=== PATIENT | female | born 1980 | race Two or more races ===

== ENCOUNTER 2020-01-20 19:01 | Inpatient (IN) | payer MEDICAID, OTHER ==
[~2020-01-20] VITALS: Ht 154.9 cm; Wt 46.1 kg
[~2020-01-20 19:01] MED LIST: CIPR-245 PO; FLUO-191 PO; FOLI1TAB15 PO; LEVO25TA9 PO; MULT-248 PO; NALT50TA PO; THIA100T13 PO
[2020-01-20 22:06] LABS: AMPHET/METH SCREEN,URINE POSITIVE (NEGATIVE); BARBITURATE SCREEN, URINE NEGATIVE (NEGATIVE); BENZODIAZEPINES SCREEN,URINE NEGATIVE (NEGATIVE); CANNABINOID SCREEN,URINE POSITIVE (NEGATIVE); COCAINE SCREEN,URINE NEGATIVE (NEGATIVE); METHADONE SCREEN, URINE NEGATIVE (NEGATIVE); OPIATE SCREEN,URINE NEGATIVE (NEGATIVE); PHENCYCLIDINE SCREEN,URINE NEGATIVE (NEGATIVE)
[2020-01-20 22:21] LABS: BASOPHILS % (AUTO) 1.1 % (0.0-2.0); EOSINOPHILS % (AUTO) 1.1 % (1.0-6.0); HEMATOCRIT 42.1 % (36-46); HEMOGLOBIN 14.3 g/dL (12.0-16.0); LYMPHOCYTES # (AUTO) 1.9 K/uL (1.0-4.8); LYMPHOCYTES % (AUTO) 28.4 % (22.0-44.0); MEAN CORPUSCULAR HEMOGLOBIN 32.1 pg (26.0-34.0); MEAN CORPUSCULAR VOLUME 94 fL (80-100); MONOCYTES # (AUTO) 0.4 K/uL (0.1-1.0); MONOCYTES % (AUTO) 6.6 % (2.0-9.0); NEUTROPHILS # (AUTO) 4.1 K/uL (1.8-7.7); NEUTROPHILS % (AUTO) 62.8 % (40.0-70.0); PLATELET COUNT (AUTO) 255 K/uL (150-450); RED BLOOD CELL COUNT(AUTO) 4.47 MIL/uL (4.00-5.20); RED CELL DISTRIBUTION WIDTH 14.4 % (11.5-14.5)
[2020-01-20 22:46] LABS: ALANINE AMINOTRANSFERASE 17 U/L (12-78); ALBUMIN 3.8 g/dL (3.4-5.0); ALKALINE PHOSPHATASE 62 U/L (46-116); ANION GAP -4 mmol/L (8-16); ASPARTATE AMINOTRANSFERASE 20 U/L (15-37); BILIRUBIN,TOTAL 0.7 mg/dL (0.1-1.0); CALCIUM, TOTAL 9.1 mg/dL (8.8-10.5); CARBON DIOXIDE 25 mmol/L (22-29); CHLORIDE 101 mmol/L (98-107); CREATININE 0.74 mg/dL (0.60-1.30); GLOMERULAR FILTR. RATE CALC > 60 mL/min (>60); GLUCOSE,RANDOM 77 mg/dL (70-110); HCG,QUANTITATIVE 1 mIU/mL (0-6); POTASSIUM 3.2 mmol/L (3.5-5.1); TOTAL PROTEIN, SERUM 7.9 g/dL (6.4-8.2); UREA NITROGEN, BLOOD 12 mg/dL (7-18)
[2020-01-20 22:52] LABS: SODIUM SERUM 122 mmol/L (136-145)
[2020-01-20] MEDS ORDERED: POTASSIUM CHLORIDE 10% 40 MEQ/30 ML LIQUID UDCUP PO ONE (23:15)
[2020-01-20] MEDS ORDERED: SODIUM CHLORIDE 1 GM TABLET PO ONE (23:15)
[2020-01-20 23:40] LABS: ANION GAP 7 mmol/L (8-16); CALCIUM, TOTAL 8.8 mg/dL (8.8-10.5); CARBON DIOXIDE 27 mmol/L (22-29); CHLORIDE 103 mmol/L (98-107); CREATININE 0.75 mg/dL (0.60-1.30); GLOMERULAR FILTR. RATE CALC > 60 mL/min (>60); GLUCOSE,RANDOM 79 mg/dL (70-110); POTASSIUM 3.5 mmol/L (3.5-5.1); SODIUM SERUM 137 mmol/L (136-145); UREA NITROGEN, BLOOD 14 mg/dL (7-18)
[2020-01-21] MEDS ORDERED: LORazepam 2 MG TABLET PO PRN (01:00)
[2020-01-21] MEDS ORDERED: QUEtiapine FUMARATE 100 MG TABLET PO PRN (01:00)
[2020-01-21 01:36] LABS: COVID AG,FIA SOURCE NASOPHARYNGEAL
[2020-01-21 02:40] VITALS: BP 102/70
[2020-01-21] MEDS: ZOLPIDEM TARTRATE 10 MG TABLET PO PRN ×2 (03:03→22:00)
[2020-01-21] MEDS ORDERED: NICOTINE 14 MG/24 HOUR PATCH TD PRN (08:00)
[2020-01-21] MEDS ORDERED: DOCUSATE SODIUM 100 MG CAPSULE PO PRN (08:00)
[2020-01-21] MEDS ORDERED: ACETAMINOPHEN 325 MG TABLET PO PRN (08:00)
[2020-01-21] MEDS ORDERED: PETROLATUM,WHITE 28 GM JELLY TP PRN (08:00)
[2020-01-21] MEDS ORDERED: ALBUTEROL SULFATE HFA 90 MCG/PUFF 8 GM INHALER IH PRN (08:00)
[2020-01-21] MEDS ORDERED: IBUPROFEN 400 MG TABLET PO PRN (08:00)
[2020-01-21] MEDS ORDERED: MAGNESIUM HYDROXIDE SUSPENSION 30 ML UDCUP PO PRN (08:00)
[2020-01-21] MEDS ORDERED: MAG HYDROX/AL HYDROX/SIMETH ES 30 ML SUSPENSION UDCUP PO PRN (08:00)
[2020-01-21] MEDS ORDERED: LOPERAMIDE HCL 2 MG CAPSULE PO PRN (08:00)
[2020-01-21] MEDS ORDERED: ONDANSETRON HCL 4 MG TABLET PO PRN (08:00)
[2020-01-21] MEDS ORDERED: CloNIDine HCL 0.1 MG TABLET PO PRN (08:00)
[2020-01-21] MEDS ORDERED: GuaiFENesin/D-METHORPHAN [SUGAR-FREE] 200-20MG/10 ML SYRUP UDCUP PO PRN (08:00)
[2020-01-21 08:58] VITALS: BP 111/66
[2020-01-21] MEDS: BuPROPion HCL XL 150 MG ER TABLET PO SCH (13:26)
[2020-01-21 16:18] VITALS: BP 99/58
[2020-01-22 06:02] VITALS: BP 106/61
[2020-01-22 07:19] LABS: CHOL/HDL RATIO 2.3 (3.9-5.7)
[2020-01-22 09:38] VITALS: BP 101/65
[2020-01-22] MEDS: BuPROPion HCL XL 150 MG ER TABLET PO SCH (10:54)
[2020-01-22 16:14] VITALS: BP 95/61
[2020-01-22] MEDS: ZOLPIDEM TARTRATE 10 MG TABLET PO PRN (20:12)
[2020-01-23 08:19] VITALS: BP 94/45
[2020-01-23] MEDS: BuPROPion HCL XL 150 MG ER TABLET PO SCH (08:58)
[2020-01-23] MEDS ORDERED: BUPR-93 PO (11:32)
== END 2020-01-23 15:35 | disposition home or self-care (01) | DRG 751 ==
LOC: EMS 19:18 → 3EI 01-21 00:55
DX: F33.2 Major depressive disorder, recurrent severe without psychotic features (principal); E03.9 Hypothyroidism, unspecified; E87.1 Hypo-osmolality and hyponatremia; E87.6 Hypokalemia; Z20.828 Contact with and (suspected) exposure to other viral communicable diseases; R45.851 Suicidal ideations; Z59.0 Homelessness; Z79.899 Other long term (current) drug therapy; Z81.8 Family history of other mental and behavioral disorders
CPT/HCPCS: 87426; G0480

== ENCOUNTER 2021-02-12 14:27 | Emergency (ER) | payer MEDICAID, OTHER ==
[~2021-02-12] VITALS: Ht 154.9 cm; Wt 45.5 kg
[~2021-02-12 14:27] MED LIST changes: +BUPR-93 PO; -CIPR-245 PO; +CIPR500T10 PO
[2021-02-12 20:05] LABS: BASOPHILS % (AUTO) 0.5 % (0.0-2.0); EOSINOPHILS % (AUTO) 1.2 % (1.0-6.0); HEMOGLOBIN 14.5 g/dL (12.0-16.0); LYMPHOCYTES # (AUTO) 2.1 K/uL (1.0-4.8); LYMPHOCYTES % (AUTO) 38.3 % (22.0-44.0); MEAN CORPUSCULAR HEMOGLOBIN 31.5 pg (26.0-34.0); MEAN CORPUSCULAR HGB CONC 34.6 G/dL (31.0-37.0); MEAN CORPUSCULAR VOLUME 91 fL (80-100); MONOCYTES # (AUTO) 0.4 K/uL (0.1-1.0); MONOCYTES % (AUTO) 8.1 % (2.0-9.0); NEUTROPHILS # (AUTO) 2.8 K/uL (1.8-7.7); NEUTROPHILS % (AUTO) 51.9 % (40.0-70.0); PLATELET COUNT (AUTO) 283 K/uL (150-450); RED BLOOD CELL COUNT(AUTO) 4.61 MIL/uL (4.00-5.20); RED CELL DISTRIBUTION WIDTH 13.6 % (11.5-14.5)
[2021-02-12 20:16] LABS: ANION GAP 6 mmol/L (8-16); CALCIUM, TOTAL 9.3 mg/dL (8.8-10.5); CARBON DIOXIDE 33 mmol/L (22-29); CHLORIDE 103 mmol/L (98-107); CREATININE 0.72 mg/dL (0.60-1.30); GLOMERULAR FILTR. RATE CALC > 60 mL/min (>60); GLUCOSE,RANDOM 104 mg/dL (70-110); POTASSIUM 3.6 mmol/L (3.5-5.1); SODIUM SERUM 142 mmol/L (136-145); UREA NITROGEN, BLOOD 13 mg/dL (7-18)
[2021-02-12 20:22] LABS: ALANINE AMINOTRANSFERASE 14 U/L (12-78); ALKALINE PHOSPHATASE 69 U/L (46-116); ASPARTATE AMINOTRANSFERASE 19 U/L (15-37); BILIRUBIN,TOTAL 0.6 mg/dL (0.1-1.0); TOTAL PROTEIN, SERUM 8.4 g/dL (6.4-8.2)
[2021-02-12 20:35] LABS: COVID AG,FIA SOURCE NASOPHARYNGEAL
[2021-02-12 20:44] LABS: AMPHET/METH SCREEN,URINE POSITIVE (NEGATIVE); BARBITURATE SCREEN, URINE NEGATIVE (NEGATIVE); BENZODIAZEPINES SCREEN,URINE NEGATIVE (NEGATIVE); CANNABINOID SCREEN,URINE POSITIVE (NEGATIVE); COCAINE SCREEN,URINE NEGATIVE (NEGATIVE); METHADONE SCREEN, URINE NEGATIVE (NEGATIVE); OPIATE SCREEN,URINE NEGATIVE (NEGATIVE)
[2021-02-12 20:45] LABS: PHENCYCLIDINE SCREEN,URINE NEGATIVE (NEGATIVE)
[2021-02-12 22:45] VITALS: BP 134/68
== END 2021-02-12 22:46 | disposition home or self-care (01) ==
LOC: EMS 14:29
DX: F32.9 Major depressive disorder, single episode, unspecified (principal); R45.851 Suicidal ideations; F15.10 Other stimulant abuse, uncomplicated; E03.9 Hypothyroidism, unspecified; F12.90 Cannabis use, unspecified, uncomplicated; F17.210 Nicotine dependence, cigarettes, uncomplicated; Z88.8 Allergy status to other drugs, medicaments and biological substances; Z79.899 Other long term (current) drug therapy
CPT/HCPCS: 36415; 80053; 80307; 84703; 85025; 87426; 99285; G0480

== ENCOUNTER 2021-07-22 19:00 | Inpatient (IN) | payer MEDICAID, OTHER ==
[~2021-07-22] VITALS: Ht 154.9 cm; Wt 42.6 kg
[~2021-07-22 19:00] MED LIST changes: +BUPR-50 PO; -BUPR-93 PO; +FLUO-177 PO; -FLUO-191 PO
[2021-07-22 19:57] LABS: BASOPHILS % (AUTO) 1.2 % (0.0-2.0); EOSINOPHILS % (AUTO) 2.1 % (1.0-6.0); HEMATOCRIT 40.1 % (36-46); HEMOGLOBIN 13.8 g/dL (12.0-16.0); LYMPHOCYTES # (AUTO) 2.6 K/uL (1.0-4.8); LYMPHOCYTES % (AUTO) 34.5 % (22.0-44.0); MEAN CORPUSCULAR HEMOGLOBIN 31.6 pg (26.0-34.0); MEAN CORPUSCULAR HGB CONC 34.5 G/dL (31.0-37.0); MEAN CORPUSCULAR VOLUME 92 fL (80-100); MONOCYTES # (AUTO) 0.6 K/uL (0.1-1.0); MONOCYTES % (AUTO) 7.7 % (2.0-9.0); NEUTROPHILS # (AUTO) 4.1 K/uL (1.8-7.7); NEUTROPHILS % (AUTO) 54.5 % (40.0-70.0); PLATELET COUNT (AUTO) 360 K/uL (150-450); RED BLOOD CELL COUNT(AUTO) 4.38 MIL/uL (4.00-5.20); RED CELL DISTRIBUTION WIDTH 13.8 % (11.5-14.5)
[2021-07-22 20:08] LABS: ANION GAP 8 mmol/L (8-16); CALCIUM, TOTAL 9.3 mg/dL (8.8-10.5); CARBON DIOXIDE 29 mmol/L (22-29); CHLORIDE 103 mmol/L (98-107); CREATININE 0.76 mg/dL (0.60-1.30); GLUCOSE,RANDOM 90 mg/dL (70-110); POTASSIUM 3.8 mmol/L (3.5-5.1); SODIUM SERUM 140 mmol/L (136-145); UREA NITROGEN, BLOOD 14 mg/dL (7-18)
[2021-07-22 20:10] LABS: GLOMERULAR FILTR. RATE CALC > 60 mL/min (>60)
[2021-07-22 20:23] LABS: ALANINE AMINOTRANSFERASE 64 U/L (12-78); ALKALINE PHOSPHATASE 93 U/L (46-116); ASPARTATE AMINOTRANSFERASE 24 U/L (15-37); BILIRUBIN,TOTAL 0.3 mg/dL (0.1-1.0); HCG,QUANTITATIVE < 1 mIU/mL (0-6); THYROID STIMULATING HORMONE 2.86 uIU/mL (0.36-3.74); TOTAL PROTEIN, SERUM 7.6 g/dL (6.4-8.2)
[2021-07-22 20:26] LABS: COVID AG,FIA SOURCE NASOPHARYNGEAL
[2021-07-22] MEDS ORDERED: LORazepam 1 MG TABLET PO ONE (21:15)
[2021-07-22] MEDS ORDERED: ZOLPIDEM TARTRATE 10 MG TABLET PO PRN (21:30)
[2021-07-22] MEDS ORDERED: SODIUM BICARBONATE [ADULT] 8.4% 50 MEQ/50 ML SYRINGE IVP ONE (23:15)
[2021-07-23 02:40] VITALS: BP 127/55
[2021-07-23 08:26] VITALS: BP 130/65
[2021-07-23] MEDS: LORazepam 2 MG TABLET PO PRN (11:03)
[2021-07-23 16:13] VITALS: BP 106/71
[2021-07-24 07:11] VITALS: BP 111/75
[2021-07-24 08:30] VITALS: BP 116/76
[2021-07-24] MEDS: FLUoxetine HCL 20 MG CAPSULE PO SCH (08:34)
[2021-07-24] MEDS: NALTREXONE HCL 50 MG TABLET PO SCH (08:34)
[2021-07-24] MEDS: BuPROPion HCL XL 150 MG ER TABLET PO SCH (08:34)
[2021-07-24] MEDS: LORazepam 2 MG TABLET PO PRN (16:05)
[2021-07-24 16:20] VITALS: BP 124/85
[2021-07-25 04:25] VITALS: BP 108/55
[2021-07-25 08:27] LABS: HEMOGLOBIN A1C 5.2 % (3.8-5.6)
[2021-07-25 08:28] LABS: CHOL/HDL RATIO 2.4 (3.9-5.7); FREE T4 (FREE THYROXINE) 0.58 ng/dL (0.76-1.46)
[2021-07-25 08:36] VITALS: BP 120/75
[2021-07-25] MEDS: NALTREXONE HCL 50 MG TABLET PO SCH (08:39)
[2021-07-25] MEDS: BuPROPion HCL XL 150 MG ER TABLET PO SCH (08:39)
[2021-07-25] MEDS: LORazepam 2 MG TABLET PO PRN (08:39)
[2021-07-25] MEDS: FLUoxetine HCL 20 MG CAPSULE PO SCH (08:39)
[2021-07-25 16:25] VITALS: BP 106/69
[2021-07-26 01:33] VITALS: BP 110/66
[2021-07-26] MEDS: LORazepam 2 MG TABLET PO PRN ×3 (06:51→18:42)
[2021-07-26 08:14] VITALS: BP 110/69
[2021-07-26] MEDS: NALTREXONE HCL 50 MG TABLET PO SCH (08:52)
[2021-07-26] MEDS: FLUoxetine HCL 20 MG CAPSULE PO SCH (08:52)
[2021-07-26] MEDS: BuPROPion HCL XL 150 MG ER TABLET PO SCH (08:52)
[2021-07-26 16:38] VITALS: BP 102/64
[2021-07-27 00:45] VITALS: BP 104/62
[2021-07-27] MEDS ORDERED: LOPERAMIDE HCL 2 MG CAPSULE PO PRN (03:45)
[2021-07-27] MEDS ORDERED: HydrOXYzine PAMOATE 50 MG CAPSULE PO PRN (03:45)
[2021-07-27] MEDS ORDERED: ACETAMINOPHEN 325 MG TABLET PO PRN (03:45)
[2021-07-27] MEDS ORDERED: TUBERCULIN, PURIFIED PROTEIN DERIVATIVE 5 TU/0.1 ML SYRINGE ID ONE (03:45)
[2021-07-27] MEDS ORDERED: MAGNESIUM HYDROXIDE SUSPENSION 30 ML UDCUP PO PRN (03:45)
[2021-07-27] MEDS ORDERED: PROMETHAZINE HCL 25 MG TABLET PO PRN (03:45)
[2021-07-27] MEDS ORDERED: MAG HYDROX/AL HYDROX/SIMETH ES 30 ML SUSPENSION UDCUP PO PRN (03:45)
[2021-07-27] MEDS ORDERED: GuaiFENesin/D-METHORPHAN [SUGAR-FREE] 200-20MG/10 ML SYRUP UDCUP PO PRN (03:45)
[2021-07-27 08:22] VITALS: BP 114/66
[2021-07-27] MEDS: LORazepam 2 MG TABLET PO PRN ×3 (08:48→19:23)
[2021-07-27] MEDS: THIAMINE 100 MG TABLET PO SCH ×2 (08:48→16:08)
[2021-07-27] MEDS: MULTIVITAMINS WITH MINERALS, THERAPEUTIC TABLET PO SCH (08:48)
[2021-07-27] MEDS: NALTREXONE HCL 50 MG TABLET PO SCH (08:49)
[2021-07-27] MEDS: OMEGA-3/DHA/EPA/FISH OIL 1,000 MG CAPSULE PO SCH (08:49)
[2021-07-27] MEDS: FOLIC ACID 1 MG TABLET PO SCH (08:49)
[2021-07-27] MEDS: BuPROPion HCL XL 150 MG ER TABLET PO SCH (08:49)
[2021-07-27] MEDS: FLUoxetine HCL 20 MG CAPSULE PO SCH (08:52)
[2021-07-27 16:46] VITALS: BP 105/74
[2021-07-27] MEDS: MELATONIN 5 MG TABLET PO SCH (20:46)
[2021-07-27 20:47] VITALS: BP 138/93
[2021-07-27] MEDS: TraMADol HCL 50 MG TABLET PO PRN (20:47)
[2021-07-28 06:26] VITALS: BP 109/76
[2021-07-28] MEDS: MULTIVITAMINS WITH MINERALS, THERAPEUTIC TABLET PO SCH (08:23)
[2021-07-28] MEDS: BuPROPion HCL XL 150 MG ER TABLET PO SCH (08:23)
[2021-07-28] MEDS: OMEGA-3/DHA/EPA/FISH OIL 1,000 MG CAPSULE PO SCH (08:23)
[2021-07-28] MEDS: FLUoxetine HCL 20 MG CAPSULE PO SCH (08:23)
[2021-07-28] MEDS: THIAMINE 100 MG TABLET PO SCH ×2 (08:23→18:02)
[2021-07-28] MEDS: FOLIC ACID 1 MG TABLET PO SCH (08:24)
[2021-07-28] MEDS: NALTREXONE HCL 50 MG TABLET PO SCH (08:24)
[2021-07-28] MEDS: LORazepam 2 MG TABLET PO PRN ×2 (08:25→12:31)
[2021-07-28] MEDS: HALOPERIDOL 5 MG TABLET PO PRN ×2 (08:25→12:31)
[2021-07-28] MEDS: TraMADol HCL 50 MG TABLET PO PRN (08:25)
[2021-07-28 08:44] VITALS: BP 112/70
[2021-07-28 09:56] LABS: GLUCOMETER DEV NAME(LOC) POC.BV
[2021-07-28 10:45] LABS: APPEARANCE,URINE HAZY (CLEAR); BILIRUBIN,URINE NEGATIVE (NEGATIVE); GLUCOSE, URINE (UA) NEGATIVE (NEGATIVE); KETONES,URINE NEGATIVE (NEGATIVE); LEUKOCYTE ESTERASE ,URINE LARGE (NEGATIVE); NITRATE,URINE POSITIVE (NEGATIVE); OCCULT BLOOD,URINE NEGATIVE (NEGATIVE); PH,URINE 6.5 (5.0-8.0); PROTEIN,URINE NEGATIVE (NEGATIVE); SPECIFIC GRAVITIY, URINE 1.015 (1.003-1.030); UROBILINOGEN,URINE <=1.0 mg/dL (<=1.0)
[2021-07-28 10:53] LABS: AMPHET/METH SCREEN,URINE POSITIVE (NEGATIVE); BARBITURATE SCREEN, URINE NEGATIVE (NEGATIVE); BENZODIAZEPINES SCREEN,URINE NEGATIVE (NEGATIVE); CANNABINOID SCREEN,URINE NEGATIVE (NEGATIVE); COCAINE SCREEN,URINE NEGATIVE (NEGATIVE); METHADONE SCREEN, URINE NEGATIVE (NEGATIVE); OPIATE SCREEN,URINE NEGATIVE (NEGATIVE)
[2021-07-28 10:54] LABS: PHENCYCLIDINE SCREEN,URINE NEGATIVE (NEGATIVE)
[2021-07-28 11:12] LABS: SQUAMOUS EPITHELIAL CELL,UR Few /LPF (None Seen)
[2021-07-28 11:13] LABS: BACTERIA,URINE Many /HPF (None Seen); RBC,URINE 0-2 /HPF (0-2)
[2021-07-28 17:21] LABS: GLUCOMETER DEV NAME(LOC) POC.BV
[2021-07-28 17:45] VITALS: BP 97/68
[2021-07-28] MEDS: CIPROFLOXACIN HCL 500 MG TABLET PO SCH (18:02)
[2021-07-28] MEDS: MELATONIN 5 MG TABLET PO SCH (20:34)
[2021-07-29 06:30] VITALS: BP 106/66
[2021-07-29] MEDS: THIAMINE 100 MG TABLET PO SCH ×2 (08:19→16:41)
[2021-07-29] MEDS: NALTREXONE HCL 50 MG TABLET PO SCH (08:19)
[2021-07-29] MEDS: CIPROFLOXACIN HCL 500 MG TABLET PO SCH ×2 (08:19→16:41)
[2021-07-29] MEDS: OMEGA-3/DHA/EPA/FISH OIL 1,000 MG CAPSULE PO SCH (08:19)
[2021-07-29] MEDS: BuPROPion HCL XL 150 MG ER TABLET PO SCH (08:20)
[2021-07-29] MEDS: LORazepam 2 MG TABLET PO PRN ×2 (08:20→12:34)
[2021-07-29] MEDS: FOLIC ACID 1 MG TABLET PO SCH (08:20)
[2021-07-29] MEDS: MULTIVITAMINS WITH MINERALS, THERAPEUTIC TABLET PO SCH (08:20)
[2021-07-29 08:59] VITALS: BP 103/53
[2021-07-29] MEDS ORDERED: FLUoxetine HCL 20 MG CAPSULE PO SCH (09:00)
[2021-07-29 12:30] VITALS: BP 108/70
[2021-07-29] MEDS: HALOPERIDOL 5 MG TABLET PO PRN (12:41)
[2021-07-29] MEDS ORDERED: MELA5TAB40 PO (13:57)
[2021-07-29] MEDS ORDERED: NALT50TA PO (13:57)
[2021-07-29] MEDS ORDERED: BUPR-49 PO (13:57)
[2021-07-29] MEDS ORDERED: OMEG-108 PO (13:57)
[2021-07-29] MEDS ORDERED: PROZ20 PO (13:57)
[2021-07-29] MEDS ORDERED: CIPR500T10 PO ×2 (14:29→14:51)
[2021-07-29 16:28] VITALS: BP 96/60
== END 2021-07-29 19:25 | disposition home or self-care (01) | DRG 750 ==
LOC: EMS 19:02 → UNDOADMIN 23:01 → B2S 23:01
PROVIDERS: ADMIT Psychiatry & Neurology Psychiatry; ATTEND Psychiatry & Neurology Psychiatry
DX: F25.1 Schizoaffective disorder, depressive type (principal); R45.851 Suicidal ideations; Z59.00 Homelessness unspecified; E03.9 Hypothyroidism, unspecified; Z20.822 Contact with and (suspected) exposure to COVID-19; F17.210 Nicotine dependence, cigarettes, uncomplicated; F15.10 Other stimulant abuse, uncomplicated; F41.9 Anxiety disorder, unspecified; Z55.9 Problems related to education and literacy, unspecified; Z63.9 Problem related to primary support group, unspecified; Z65.3 Problems related to other legal circumstances; Z85.41 Personal history of malignant neoplasm of cervix uteri; Z90.710 Acquired absence of both cervix and uterus; Z91.19 Patient's noncompliance with other medical treatment and regimen; Z88.8 Allergy status to other drugs, medicaments and biological substances
CPT/HCPCS: 80053; 80061; 81001; 83036; 84439; 84443; 84702; 85025; 86592; 87086; 99285; G0480; J3490; Q9967

== ENCOUNTER 2023-04-18 10:06 | Emergency (ER) | payer MEDICAID, OTHER ==
[~2023-04-18] VITALS: Ht 154.9 cm; Wt 46.4 kg
[~2023-04-18 10:06] MED LIST changes: +BUPR-49 PO; -BUPR-50 PO; -FLUO-177 PO; -FOLI1TAB15 PO; -LEVO25TA9 PO; +MELA5TAB40 PO; -MULT-248 PO; +OMEG-135 PO; +PROZ20 PO; -THIA100T13 PO
[2023-04-18 10:09] VITALS: TEMP 98.5
[2023-04-18] MEDS ORDERED: IBUPROFEN 600 MG TABLET PO ONE (10:30)
[2023-04-18] MEDS ORDERED: HYDR-4723 PO (10:31)
[2023-04-18] MEDS ORDERED: IBUP-1554 PO (10:31)
[2023-04-18] MEDS ORDERED: PENI500T2 PO (10:31)
[2023-04-18] MEDS: HYDROCODONE/ACETAMINOPHEN 5-325 MG TABLET PO ONE (10:39)
[2023-04-18] MEDS: CEPHALEXIN MONOHYDRATE 500 MG CAPSULE PO ONE (10:40)
[2023-04-18] MEDS: KETOROLAC TROMETHAMINE 60 MG/2 ML VIAL IM ONE (10:40)
[2023-04-18 11:39] VITALS: BP 131/91; PULSE 86; RESP 16
== END 2023-04-18 11:48 | disposition home or self-care (01) ==
LOC: EMS 10:06
DX: K02.9 Dental caries, unspecified (principal); F25.0 Schizoaffective disorder, bipolar type; E03.9 Hypothyroidism, unspecified; F17.210 Nicotine dependence, cigarettes, uncomplicated; F12.90 Cannabis use, unspecified, uncomplicated; F15.90 Other stimulant use, unspecified, uncomplicated; Z90.710 Acquired absence of both cervix and uterus; Z98.51 Tubal ligation status; Z88.8 Allergy status to other drugs, medicaments and biological substances
CPT/HCPCS: 99283; 96372; J1885